=== PATIENT | male | born 1970 ===

== ENCOUNTER → 2021-09-25 12:49 | Outpatient (CLI) | payer BC, SELFPAY ==
--- NOTE | ~2021-09-25 | CT_ITS ---
EXAMINATION: CT abdomen pelvis wo con DATE: 09/25/2021 13:08 INDICATION: Bilateral leg edema TECHNIQUE: Computed tomography (CT) of the abdomen and pelvis was performed without intravenous contr ast. Automated exposure control and iterative reconstruction technique were employed. Exam dose: 115 5.66 mGy-cm total exam DLP. COMPARISON: None. FINDINGS: Mild discoid atelectasis or more likely scarring at the base of the lingula.. Minimal atele ctasis or scarring at the posterior left lung base, left lower lobe. No basilar consolidation. Normal heart size. No pericardial or pleural effusion. Small sliding hiatal hernia. No bile duct or pancreatic duct dilatation. Diffuse hepatic steatosis. No hepatic, splenic, pancreatic, and adrenal or renal space-occupying mass lesion is noted on this limited noncontrast examination with the exception of approximately 2 cm upp er pole left renal cyst. No pancreatic calcification. No urinary tract calculus or hydroureteronephrosis. There is minimal atherosclerotic calcification and normal caliber of the abdominal aorta. No intraper itoneal or retroperitoneal or pelvic mass lesion or adenopathy or ascites. The urinary bladder, prostate gland and seminal vesicles are unremarkable. There is a small left inguinal hernia containing nonobstructed short segment of colon and fat Bilateral small fat-containing right and small fat-containing umbilical hernia. No evidence of appendicitis. No bowel obstruction, bowel wall thickening, pneumatosis or intraperiton eal free air. Subacute healing anterior left seventh, eighth and ninth rib fractures. No suspicious osteolytic or osteoblastic lesions. IMPRESSION: Small sliding hiatal hernia Hepatic steatosis 2 cm left renal cyst Small left inguinal hernia containing nonobstructed short left colon segments Small fat-containing right inguinal and umbilical hernias Healing anterior left seventh through ninth rib fractures Reviewed, dictated and finalized at [facility]. Reviewed, dictated and finalized at [facility].
== END ==
PROVIDERS: PCP Family Medicine; Visit Provider Family Medicine
DX: R60.0 Localized edema (principal); S22.42XA Multiple fractures of ribs, left side, initial encounter for closed fracture; K44.9 Diaphragmatic hernia without obstruction or gangrene; K40.90 Unilateral inguinal hernia, without obstruction or gangrene, not specified as recurrent; K42.9 Umbilical hernia without obstruction or gangrene; K76.0 Fatty (change of) liver, not elsewhere classified; N28.1 Cyst of kidney, acquired
CPT/HCPCS: 74176